=== PATIENT | female | born 1990 | race Hispanic/Latino ===

== ENCOUNTER 2021-05-18 20:35 | Emergency (ER) | payer MEDICARE, MEDICAID ==
[2021-05-18 21:04] VITALS: BP 142/101
[2021-05-18 21:38] LABS: Bacteria,Urine 1+ /HPF (Negative); Bilirubin,Urine NEG (Negative); Blood,Urine LG (Negative); Color,Urine Yellow (Yellow); Mucus,Urine FEW /HPF; Urobilinogen,Urine < 2.0 mg/dL (<2.0)
[2021-05-18 22:01] LABS: RBC,Urine > 182.0 /HPF (0.0-6.0)
[2021-05-18 22:11] LABS: Alanine Aminotransferase 11 units/L (7-56); Albumin 3.9 g/dL (3.9-5); Blood Urea Nitrogen 9 mg/dL (7-17); Calcium 9.1 mg/dL (8.4-10.2); Hemolysis Index 3
[2021-05-18 22:16] LABS: BUN/Creatinine Ratio 13
[2021-05-18 22:20] LABS: Basophils % (Auto) 0.6 % (0.0-1.8); Eosinophils # (Auto) 0.1 K/mm3 (0.0-0.4); Eosinophils % (Auto) 1.4 % (0.0-4.3); Hematocrit 39.3 % (30.3-42.9); Hemoglobin 12.8 gm/dl (10.1-14.3); Lymphocytes % (Auto) 32.5 % (13.4-35.0); Mean Corpuscular HGB Conc 33 % (30-34); Mean Corpuscular Volume 87 fl (79-97); Monocytes # (Auto) 0.5 K/mm3 (0.0-0.8); Monocytes % (Auto) 8.3 % (0.0-7.3); Platelet Count 204 K/mm3 (140-440); Red Blood Count 4.53 M/mm3 (3.65-5.03)
[2021-05-19] MEDS ORDERED: SODIUM CHLORIDE 0.9% 1000 ML 1,000 ML IV ONE (04:47)
[2021-05-19] MEDS ORDERED: ONDANSETRON 4 MG/2 ML INJ IV ONE (04:47)
[2021-05-19] MEDS ORDERED: FAMOTIDINE 20 MG/2 ML INJ IV ONE (04:47)
[2021-05-19] MEDS ORDERED: DICYCLOMINE 20 MG/2 ML INJ IM ONE (05:00)
[2021-05-19] MEDS ORDERED: FAMOTIDINE 20 MG TAB PO ONE (05:00)
[2021-05-19] MEDS ORDERED: ONDANSETRON 4 MG/2 ML INJ IM ONE (05:00)
--- NOTE | 2021-05-19 05:17 | Emergency Department Report ---
ED Abdominal Pain HPI - General Chief Complaint: Abdominal Pain Stated Complaint: VOMITING/ABD PAIN Source: patient Mode of arrival: Ambulatory Limitations: No Limitations - History of Present Illness Initial Comments: Patient is a 31-year-old female with a history of gastroparesis, GERD, and gastric ulcers and is status post right nephrectomy who presents to the ED w ith complaint of acute onset persistent intractable nausea and vomiting for the last 3 days and epigastric pain. Patient states that she has not been able to keep anything down in the last 2 days due to worsening and intractable nausea and vomiting. Patient denies fever, chills, dizziness, syncope, diarrhea, chest pain or shortness of breath, sore throat, headache, loss of consciousness, palpitations, dysuria, urinary frequency and urgency, vaginal bleeding, vaginal discharge or constipation. MD Complaint: abdominal pain, other (Nausea and vomiting) -: Sudden, days(s) (3) Location: epigastric Radiation: none Migration to: no migration Severity scale (0 -10): 3 Quality: burning Consistency: intermittent Improves With: nothing Worsens With: eating, vomiting Context: possible food poisoning, other (GERD) Associated Symptoms: denies other symptoms, nausea, vomiting, anorexia. denies: diarrhea, fever, chills, constipation, dysuria, hematemesis, hematochezia, melena, hematuria, syncope, other Treatments Prior to Arrival: NSAIDs - Related Data LMP Date: 04/24/21 Previous Rx's Medication Instructions Recorded Last Taken Type Dicyclomine [Bentyl] 20 mg PO Q6H PRN #30 tablet 05/19/21 Unknown Rx Famotidine [Pepcid] 20 mg PO BID #60 tablet 05/19/21 Unknown Rx Omeprazole 40 mg PO DAILY #30 cap 05/19/21 Unknown Rx Ondansetron [Zofran Odt] 4 mg PO Q6HR PRN #20 tab.rapdis 05/19/21 Unknown Rx Promethazine [Phenergan] 25 mg MI Q6HR PRN #15 supp.rect 05/19/21 Unknown Rx cephALEXin [Keflex] 500 mg PO Q8HR #30 cap 05/19/21 Unknown Rx Allergies Allergy/AdvReac Type Severity Reaction Status Date / Time haloperidol [From Haldol] Allergy Unknown Verified 05/18/21 21:07 metoclopramide [From Reglan] Allergy Unknown Verified 05/18/21 21:07 prochlorperazine Allergy Unknown Verified 05/18/21 21:07 [From Compazine] ED Review of Systems ROS: Stated complaint: VOMITING/ABD PAIN Other details as noted in HPI Constitutional: denies: chills, fever Eyes: denies: eye pain, eye discharge, vision change ENT: denies: ear pain, throat pain Respiratory: denies: cough, shortness of breath, wheezing Cardiovascular: denies: chest pain, palpitations Endocrine: no symptoms reported Gastrointestinal: abdominal pain (Epigastric pain), nausea, vomiting. denies: diarrhea Genitourinary: denies: urgency, dysuria, discharge Musculoskeletal: denies: back pain, joint swelling, arthralgia Skin: denies: rash, lesions Neurological: denies: headache, weakness, paresthesias Psychiatric: denies: anxiety, depression Hematological/Lymphatic: denies: easy bleeding, easy bruising ED Past Medical Hx - Past Medical History Previous Medical History?: Yes Additional medical history: Gastroparesis; gastric ulcer; right nephrectomy - Medications Home Medications: Home Medications Medication Instructions Recorded Confirmed Last Taken Type Dicyclomine [Bentyl] 20 mg PO Q6H PRN #30 tablet 05/19/21 Unknown Rx Famotidine [Pepcid] 20 mg PO BID #60 tablet 05/19/21 Unknown Rx Omeprazole 40 mg PO DAILY #30 cap 05/19/21 Unknown Rx Ondansetron [Zofran Odt] 4 mg PO Q6HR PRN #20 tab.rapdis 05/19/21 Unknown Rx Promethazine [Phenergan] 25 mg MI Q6HR PRN #15 supp.rect 05/19/21 Unknown Rx cephALEXin [Keflex] 500 mg PO Q8HR #30 cap 05/19/21 Unknown Rx ED Physical Exam - General Limitations: No Limitations General appearance: alert, in no apparent distress - Head Head exam: Present: atraumatic, normocephalic, normal inspection - Eye Eye exam: Present: normal appearance, PERRL, EOMI Pupils: Present: normal accommodation - ENT ENT exam: Present: normal exam, normal orophraynx, mucous membranes moist, TM's normal bilaterally, normal external ear exam - Neck Neck exam: Present: normal inspection, full ROM. Absent: tenderness - Respiratory Respiratory exam: Present: normal lung sounds bilaterally. Absent: respiratory distress, wheezes, rales, rhonchi, chest wall tenderness, accessory muscle use, decreased breath sounds - Cardiovascular Cardiovascular Exam: Present: regular rate, normal rhythm, normal heart sounds. Absent: systolic murmur, diastolic murmur, rubs, gallop - GI/Abdominal GI/Abdominal exam: Present: soft, tenderness (Palpable mild epigastric tenderness), normal bowel sounds. Absent: guarding, rebound, hyperactive bowel sounds, hypoactive bowel sounds, organomegaly, mass - Extremities Exam Extremities exam: Present: normal inspection, full ROM, normal capillary refill - Back Exam Back exam: Present: normal inspection, full ROM. Absent: tenderness, CVA tenderness (R), CVA tenderness (L), muscle spasm, paraspinal tenderness, vertebral tenderness - Neurological Exam Neurological exam: Present: alert, oriented X3, CN II-XII intact, normal gait, reflexes normal - Psychiatric Psychiatric exam: Present: normal affect, normal mood - Skin Skin exam: Present: warm, dry, intact, normal color. Absent: rash ED Course Vital Signs 05/18/21 20:58 Temperature 98.4 F Pulse Rate 86 Respiratory 20 Rate Blood Pressure 142/101 O2 Sat by Pulse 98 Oximetry ED Medical Decision Making - Lab Data Result diagrams: 05/18/21 21:37 05/18/21 21:37 - Medical Decision Making This is a 31-year-old female with a history of gastroparesis, GERD, and gastric ulcers and is status post right nephrectomy who presents to the ED with complaint of acute onset persistent intractable nausea and vomiting for the last 3 days and epigastric pain. Patient states that she has not been able to keep anything down in the last 2 days due to worsening and intractable nausea and vomiting. In the ED, patient is alert and oriented x3 and is not in any distress. Patient was treated in the ED with antiemetics and antacids as well as antispasmodics. Lab test results were reviewed and are all nonactionable except for urinary tract infection in urinalysis. On reevaluation, patient felt better and will discharge home on medications including antiemetics, antacids, pain medications and antibiotics for UTI. Patient was also counseled to avoid NSAIDs if she has a history of gastric ulcers. Patient verbalized understanding. Patient was advised to maintain a clear liquid diet for 12 to 24 hours, drink plenty of fluids and follow-up with her primary care physician in 5 to 7 days for reevaluation or return to the ED immediately if symptoms get worse. - Differential Diagnosis GERD; gastroenteritis; gastritis; gastric ulcer disease; dehydration; UTI Critical care attestation.: If time is entered above; I have spent that time in minutes in the direct care of this critically ill patient, excluding procedure time. ED Disposition Clinical Impression: Acute epigastric pain, Nausea and vomiting in adult patient, Acute urinary tract infection GERD (gastroesophageal reflux disease) Qualifiers: Esophagitis presence: esophagitis presence not specified Qualified Code(s): K21.9 - Gastro-esophageal reflux disease without esophagitis Disposition: HOME / SELF CARE / HOMELESS Is pt being admited?: No Does the pt Need Aspirin: No Condition: Stable Instructions: Abdominal Pain (ED), Abdominal Pain, Adult, [id number], Heartburn, [id number], Nausea and Vomiting, Adult, [id number], Urinary Tract Infection, Adult, [id number], Gastroesophageal Reflux Disease, Adult, [id number] Additional Instructions: All lab test results were reviewed and are all nonactionable except for urinary tract infection in urinalysis. Therefore maintain a clear liquid diet for 12 to 24 hours, drink plenty of fluids, take medication as needed and follow-up with your primary care physician in 5 to 7 days for reevaluation. Return to the ED immediately if symptoms get worse. Prescriptions: Dicyclomine [Bentyl] 20 mg PO Q6H PRN #30 tablet PRN Reason: Abdominal pain cephALEXin [Keflex] 500 mg PO Q8HR #30 cap Omeprazole 40 mg PO DAILY #30 cap Famotidine [Pepcid] 20 mg PO BID #60 tablet Promethazine [Phenergan] 25 mg MI Q6HR PRN #15 supp.rect PRN Reason: Nausea And Vomiting Ondansetron [Zofran Odt] 4 mg PO Q6HR PRN #20 tab.rapdis PRN Reason: Nausea Referrals: YANET ROQUE MD [Primary Care Provider] - 3-5 Days Time of Disposition: 05:18 Print Language: [place]
== END 2021-05-19 06:14 | disposition home or self-care (01) ==
LOC: ED 20:35
DX: K21.9 Gastro-esophageal reflux disease without esophagitis (principal); N39.0 Urinary tract infection, site not specified; R10.13 Epigastric pain; R11.2 Nausea with vomiting, unspecified; Z98.890 Other specified postprocedural states; Z88.1 Allergy status to other antibiotic agents; Z91.09 Other allergy status, other than to drugs and biological substances
CPT/HCPCS: 36415; 80053; 81001; 85025; 87086; 96372; 99283; J0500; J2405